=== PATIENT | female | born 1955 | race Caucasian/White ===

== ENCOUNTER 2025-03-19 19:36 | Inpatient (IN) | payer MEDICARE ==
[~2025-03-19] VITALS: Ht 157.5 cm; Wt 26.9 kg
[2025-03-19] MEDS ORDERED: iohexol 350MG/ML 100ml bottle IV ONE (19:46)
[2025-03-19] MEDS: naloxone 2mg/2ml inj ONE (19:56)
[2025-03-19 20:07] LABS: ALBUMIN 2.5 G/DL (3.4-5.0); ANION GAP 5 (8-16); BLOOD UREA NITROGEN 17 MG/DL (7-18); CALCIUM 8.2 MG/DL (8.5-10.1); CHLORIDE 101 MMOL/L (99-107); CREATININE 0.74 MG/DL (0.40-0.90); GLUCOSE 173 MG/DL (70-104); SODIUM 136 MMOL/L (135-145); TOTAL CARBON DIOXIDE 30.3 MMOL/L (24-32); eCRCL 58 ML/MIN; eGFR 78 ML/MIN
[2025-03-19 20:15] VITALS: BP 182/103; PULSE 85; RESP 16; O2SAT 100
[2025-03-19 20:15] LABS: BASOPHILS # (AUTO) 0.1 X10'3 (0-0.2); BASOPHILS % (AUTO) 0.9 % (0-1); EOSINOPHILS # (AUTO) 0.2 X10'3 (0-0.9); EOSINOPHILS % (AUTO) 3.5 % (0-6); HEMOGLOBIN 10.9 g/dl (12.0-16.0); LYMPHOCYTES # (AUTO) 1.2 X10'3 (1.1-4.8); LYMPHOCYTES % (AUTO) 20.4 % (21-51); MEAN CORPUSCULAR VOLUME 87.9 FL (78-98); MEAN PLATELET VOLUME 6.8 FL (7.4-10.4); MONOCYTES # (AUTO) 0.6 X10'3 (0-0.9); MONOCYTES % (AUTO) 9.8 % (2-12); NEUTROPHILS # (AUTO) 3.7 X10'3 (1.8-7.7); NEUTROPHILS % (AUTO) 65.4 % (42-75); PLATELET COUNT 296 X10'3 (140-440); RED BLOOD COUNT 3.76 X10'6 (4.20-5.60); RED CELL DISTRIBUTION WIDTH 15.3 % (11.5-14.5); WHITE BLOOD COUNT 5.7 X10'3 (4.5-11.0)
[2025-03-19] MEDS: propofol 1000mg/100ml bottle 100 ML IV SCH (20:24)
[2025-03-19 20:36] LABS: ABG BASE EXCESS 4.3 mmol/L (-2.0-3.0); ABG HCO3 27.4 mmol/L (21.0-28.0); ABG OXYGEN SATURATION 99.2 % (94.0-98.0); ABG PCO2 (T) 32.9 mmHg (32.0-45.0); ABG PH (T) 7.533 (7.350-7.450); ABG PO2 (T) 203.5 mmHg (83.0-108.0); ALLEN'S TEST Modified; FCOHb 0.4 % (0.5-1.5); FHHb 0.8 % (0.0-5.0); FMetHb 0.3 % (0.0-1.5); FO2Hb 98.5 % (94.0-98.0); MODE vent- ac prvc; PATIENT TEMPERATURE 35.4; PEEP 5 cm H2O; RESPIRATORY RATE 16 b/min; TIDAL VOLUME 350 mL; TOTAL HEMOGLOBIN 10.8 G/dl (12.0-16.0)
[2025-03-19 20:46] LABS: URINE AMPHETAMINE SCREEN NEGATIVE (Neg); URINE BARBITUATE SCREEN NEGATIVE (Neg); URINE BENZODIAZEPINES SCREEN POSITIVE (Neg); URINE CANNABINOID SCREEN NEGATIVE (Neg); URINE COCAINE SCREEN NEGATIVE (Neg); URINE METHADONE SCREEN NEGATIVE (Neg); URINE OPIATE SCREEN POSITIVE (Neg); URINE PHENCYCLIDINE SCREEN NEGATIVE (Neg)
[2025-03-19 20:59] LABS: ALANINE AMINOTRANSFERASE 37 U/L (12-78); ALBUMIN/GLOBULIN RATIO 0.7 (1.1-1.5); ALKALINE PHOSPHATASE 85 IU/L (46-116); ASPARTATE AMINO TRANSFERASE 29 U/L (10-37); BILIRUBIN,DIRECT 0.1 MG/DL (0-0.3); BILIRUBIN,TOTAL 0.4 MG/DL (0.1-1.0); SALICYLATE 1.5 MG/DL (4.0-20.0); TOTAL PROTEIN 6.3 G/DL (6.4-8.2)
[2025-03-19 21:00] LABS: ETHANOL < 10 MG/DL (<10)
[2025-03-19] MEDS: thiamine 100mg/ml 2ml inj. IV ONE (22:00)
[2025-03-19] MEDS ORDERED: dextrose 5%-normal saline 1,000 ML IV ONE (22:30)
[2025-03-19 22:55] VITALS: BP 171/103; PULSE 87; RESP 14; O2SAT 100
[2025-03-19] MEDS: dextrose 5%-water 1,000 ML IV SCH (23:27)
[2025-03-19 23:30] VITALS: TEMP 97.9
[2025-03-20] VITALS (22 sets, daily range): BP systolic 119–163; BP diastolic 67–93; PULSE 78–91; RESP 9–20; O2SAT 94–100
[2025-03-20] MEDS: enoxaparin 30mg/0.3ml syringe SUBCUT ONE (00:11)
[2025-03-20] MEDS: famotidine/PF 10 mg/ml inj IV ONE (00:12)
[2025-03-20] MEDS: piperacillin/tazo 3.375gm/50ml 50 ML IV SCH (00:15)
[2025-03-20 03:20] LABS: ABG BASE EXCESS 0.4 mmol/L (-2.0-3.0); ABG HCO3 24.2 mmol/L (21.0-28.0); ABG OXYGEN SATURATION 91.2 % (94.0-98.0); ABG PCO2 (T) 34.8 mmHg (32.0-45.0); ABG PH (T) 7.458 (7.350-7.450); ABG PO2 (T) 54.9 mmHg (83.0-108.0); ALLEN'S TEST Modified; FCOHb 1.2 % (0.5-1.5); FHHb 8.7 % (0.0-5.0); FMetHb 0.2 % (0.0-1.5); FO2Hb 89.9 % (94.0-98.0); MODE VENT - PRVC; PATIENT TEMPERATURE 36.4; PEEP 5 cm H2O; RESPIRATORY RATE 14 b/min; TIDAL VOLUME 350 mL; TOTAL HEMOGLOBIN 10.4 G/dl (12.0-16.0)
[2025-03-20 03:50] LABS: BASOPHILS # (AUTO) 0.1 X10'3 (0-0.2); BASOPHILS % (AUTO) 1.2 % (0-1); EOSINOPHILS # (AUTO) 0.3 X10'3 (0-0.9); EOSINOPHILS % (AUTO) 5.9 % (0-6); HEMATOCRIT 29.9 % (35.0-45.0); HEMOGLOBIN 10.2 g/dl (12.0-16.0); LYMPHOCYTES # (AUTO) 1.4 X10'3 (1.1-4.8); LYMPHOCYTES % (AUTO) 30.5 % (21-51); MEAN CORPUSCULAR HEMOGLOBIN 29.7 PG (27.0-31.0); MEAN CORPUSCULAR VOLUME 87.3 FL (78-98); MEAN PLATELET VOLUME 6.9 FL (7.4-10.4); MONOCYTES # (AUTO) 0.5 X10'3 (0-0.9); MONOCYTES % (AUTO) 10.4 % (2-12); NEUTROPHILS # (AUTO) 2.5 X10'3 (1.8-7.7); PLATELET COUNT 311 X10'3 (140-440); RED BLOOD COUNT 3.43 X10'6 (4.20-5.60); RED CELL DISTRIBUTION WIDTH 14.7 % (11.5-14.5); WHITE BLOOD COUNT 4.7 X10'3 (4.5-11.0)
[2025-03-20 04:10] LABS: ALANINE AMINOTRANSFERASE 31 U/L (12-78); ALBUMIN 2.1 G/DL (3.4-5.0); ALBUMIN/GLOBULIN RATIO 0.6 (1.1-1.5); ALKALINE PHOSPHATASE 75 IU/L (46-116); ANION GAP 5 (8-16); ASPARTATE AMINO TRANSFERASE 24 U/L (10-37); BILIRUBIN,TOTAL 0.4 MG/DL (0.1-1.0); BLOOD UREA NITROGEN 12 MG/DL (7-18); BUN/CREATININE RATIO 23.1 (10.0-20.0); CALCIUM 7.7 MG/DL (8.5-10.1); CHLORIDE 104 MMOL/L (99-107); CREATININE 0.52 MG/DL (0.40-0.90); GLUCOSE 93 MG/DL (70-104); MAGNESIUM 1.5 MG/DL (1.5-2.4); PHOSPHORUS 2.9 MG/DL (2.3-4.5); POTASSIUM 3.2 MMOL/L (3.5-5.1); SODIUM 139 MMOL/L (135-145); TOTAL CARBON DIOXIDE 29.6 MMOL/L (24-32); TOTAL PROTEIN 5.5 G/DL (6.4-8.2); eCRCL 44 ML/MIN; eGFR > 90 ML/MIN
[2025-03-20] MEDS: dextrose 5%-lactated ringers 1,000 ML IV SCH (06:51)
[2025-03-20] MEDS: thiamine 100mg/ml 2ml inj. IV SCH (07:23)
[2025-03-20] MEDS ORDERED: dextrose 50%-water 50ml dispensing syringe IV ONE (08:00)
[2025-03-20] MEDS: folic acid 1mg/0.2ml inj IV SCH (09:45)
[2025-03-20] MEDS ORDERED: zithromax (12:12)
[2025-03-20] MEDS ORDERED: PARO-141 PO (12:12)
[2025-03-20] MEDS ORDERED: meloxicam (12:12)
[2025-03-20] MEDS ORDERED: potassium Cl 20 mEq SR tablet PO PRN (13:10)
[2025-03-20] MEDS ORDERED: magnesium sulf-water 4G/100mL 100 ML IV PRN (13:10)
[2025-03-20] MEDS ORDERED: magnesium sulf-water 2g/50mL 50 ML IV PRN (13:10)
[2025-03-20] MEDS ORDERED: potassium Cl 40MEQ/1/2NS 520ml 520 ML IV PRN (13:10)
[2025-03-20] MEDS ORDERED: hydrALAZINE 20mg/ml inj. IV PRN (13:10)
[2025-03-20] MEDS ORDERED: naloxone 0.4 mg/ml inj IV PRN (13:30)
[2025-03-20] MEDS: potassium Cl 20 mEq SR tablet PO PRN (13:41)
[2025-03-20] MEDS ORDERED: TIZA4CAP PO (13:42)
[2025-03-20] MEDS ORDERED: SODI4VIA14 NEB (13:42)
[2025-03-20] MEDS ORDERED: FLUT9.9S BOTHNARES (13:42)
[2025-03-20] MEDS ORDERED: TRAZ-256 PO (13:42)
[2025-03-20] MEDS ORDERED: GABA300C PO ×2 (13:42)
[2025-03-20] MEDS ORDERED: CYAN10007 IM (13:42)
[2025-03-20] MEDS ORDERED: levoFLOXACIN-Levaquin 750MG/D5 150 ML IV SCH (14:00)
[2025-03-20] MEDS ORDERED: thiamine 100mg tablet PO SCH (20:00)
[2025-03-20] MEDS ORDERED: famotidine 20mg tablet PO SCH (20:00)
[2025-03-20] MEDS ORDERED: K and/or MAG REPLACEMENT MC SCH (20:00)
[2025-03-20] MEDS ORDERED: famotidine 10mg tablet PO SCH (20:00)
[2025-03-21] MEDS ORDERED: folic acid 1mg tablet PO SCH (08:00)
== END 2025-03-20 16:30 | disposition left against medical advice (07) | DRG 917 ==
LOC: ER 19:37 → ED HOLD 22:32 → CICU 2S 03-20 00:56
PROVIDERS: ADMIT Internal Medicine; ATTEND Internal Medicine
PROC: 0BH17EZ Insertion of Endotracheal Airway into Trachea, Via Natural or Artificial Opening (ICD-10-PCS; principal; 2025-03-19)
PROC: 5A1935Z Respiratory Ventilation, Less than 24 Consecutive Hours (ICD-10-PCS; 2025-03-19)
DX: T50.991A Poisoning by other drugs, medicaments and biological substances, accidental (unintentional), initial encounter (principal); G92.8 Other toxic encephalopathy; J69.0 Pneumonitis due to inhalation of food and vomit; J96.01 Acute respiratory failure with hypoxia; I16.1 Hypertensive emergency; Z66 Do not resuscitate; Z53.21 Procedure and treatment not carried out due to patient leaving prior to being seen by health care provider; I10 Essential (primary) hypertension; E87.6 Hypokalemia; D64.9 Anemia, unspecified; F10.20 Alcohol dependence, uncomplicated; E16.2 Hypoglycemia, unspecified; Y92.89 Other specified places as the place of occurrence of the external cause
CPT/HCPCS: 31500; 36415; 36600; 70450; 71045; 80048; 80053; 80076; 80305; 80320; 80329; 82803; 82948; 83605; 83735; 84100; 84132; 84145; 85018; 85025; 87081; 93005; 94002; 94003; 94640; 94760; 94799; 99291; A4615; A6212; A6213; G0378; J1650; J2310; J2543; J2704; J3411; J3490; J7070; J7121; Q9967